=== PATIENT | female | born 1985 | race Caucasian/White ===

== ENCOUNTER 2016-12-10 17:18 | Emergency (ER) | payer OTHER ==
[~2016-12-10] VITALS: Ht 185.4 cm; Wt 131.9 kg
[~2016-12-10 17:18] MED LIST: HEMOCYTE324 MG PO; IBUPROFEN800 MG PO; PRENATAL TABLE1 EAC3 PO; PRILOSEC20 MG PO
[2016-12-10] MEDS ORDERED: PERCOCET 5/31 TABLET PO (19:42)
[2016-12-10 19:56] VITALS: BP 134/93
== END 2016-12-10 19:59 | disposition home or self-care (01) ==
LOC: EME 17:18
PROC: 3E0T3BZ Introduction of Anesthetic Agent into Peripheral Nerves and Plexi, Percutaneous Approach (ICD-10-PCS; principal; 2016-12-10)
DX: O99.619 Diseases of the digestive system complicating pregnancy, unspecified trimester (principal); K08.89 Other specified disorders of teeth and supporting structures; K03.81 Cracked tooth; Z3A.00 Weeks of gestation of pregnancy not specified; Z87.891 Personal history of nicotine dependence
CPT/HCPCS: 99281; 99284; S0020

== ENCOUNTER 2017-03-14 09:36 | Inpatient (IN) | payer OTHER ==
[2017-03-14] VITALS (7 sets, daily range): BP systolic 128–140; BP diastolic 60–91
[~2017-03-14] VITALS: Ht 182.9 cm; Wt 133.4 kg
[~2017-03-14 09:36] MED LIST changes: +PERCOCET 5/31 TABLET PO
[2017-03-14 11:18] LABS: EOSINOPHIL (%) 0.2 % (0-5); HEMATOCRIT 39.2 % (36.0-46.0); IMMATURE GRANULOCYTE (%) 0.3 % (0.0-0.7); INSTRUMENT ABS NEUTROPHIL CT 11.2 K/uL; LYMPHOCYTE COUNT 0.9 K/uL (1.0-2.8); MCH 27.6 PG (29.0-34.0); MCHC 31.6 G/DL (30.0-36.0); MCV 87.3 FL (83-99); MEAN PLAT.VOLUME 10.3 uM^3 (9.5-12.4); MONOCYTE (%) 3.7 % (3-12); MONOCYTE COUNT 0.5 K/uL (0-0.8); NEUTROPHIL (%) 88.8 % (45-76); NEUTROPHIL COUNT 11.2 K/uL (1.8-6.4); PLATELET COUNT 219 K/uL (156-360); RBC DIS.WIDTH-CV 13.5 % (11.8-14.6); RBC DIS.WIDTH-SD 42.5 % (39-53); RED BLOOD COUNT 4.49 M/uL (3.80-5.20); WHITE BLOOD COUNT 12.6 K/uL (4.1-10.2)
[2017-03-15 07:35] LABS: EOSINOPHIL (%) 0.9 % (0-5); EOSINOPHIL COUNT 0.1 K/uL (0-0.3); IMMATURE GRANULOCYTE (%) 0.4 % (0.0-0.7); INSTRUMENT ABS NEUTROPHIL CT 7.1 K/uL; LYMPHOCYTE COUNT 1.8 K/uL (1.0-2.8); MCH 27.8 PG (29.0-34.0); MCHC 31.9 G/DL (30.0-36.0); MCV 87.2 FL (83-99); MEAN PLAT.VOLUME 10.7 uM^3 (9.5-12.4); MONOCYTE COUNT 0.7 K/uL (0-0.8); NEUTROPHIL (%) 73.2 % (45-76); NEUTROPHIL COUNT 7.1 K/uL (1.8-6.4); PLATELET COUNT 192 K/uL (156-360); RBC DIS.WIDTH-CV 13.5 % (11.8-14.6); RBC DIS.WIDTH-SD 43.3 % (39-53); RED BLOOD COUNT 3.67 M/uL (3.80-5.20); WHITE BLOOD COUNT 9.7 K/uL (4.1-10.2)
[2017-03-15 08:04] VITALS: BP 134/71
[2017-03-15] MEDS ORDERED: IBUPROFEN800 MG PO (12:48)
[2017-03-15] MEDS ORDERED: Tylenol Extra Streng PO (12:48)
[2017-03-15 15:29] VITALS: BP 123/57
== END 2017-03-15 18:30 | disposition home or self-care (01) | DRG 775 ==
LOC: LDRP-OP 09:36 → 2WEST 09:38
PROVIDERS: Advanced Practice Midwife
DX: O77.0 Labor and delivery complicated by meconium in amniotic fluid (principal); O99.214 Obesity complicating childbirth; O69.81X0 Labor and delivery complicated by cord around neck, without compression, not applicable or unspecified; E66.9 Obesity, unspecified; Z37.0 Single live birth; Z3A.40 40 weeks gestation of pregnancy; Z68.30 Body mass index [BMI] 30.0-30.9, adult
CPT/HCPCS: 85025; 90686

== ENCOUNTER 2017-10-21 21:03 | Emergency (ER) | payer OTHER ==
[~2017-10-21] VITALS: Ht 182.9 cm; Wt 140.3 kg
[~2017-10-21 21:03] MED LIST changes: +Tylenol Extra Streng PO
[2017-10-22 00:32] LABS: HEMATOCRIT 43.9 % (36.0-46.0); HEMOGLOBIN 14.3 G/DL (11.9-15.5); MCH 27.1 PG (29.0-34.0); MCHC 32.6 G/DL (30.0-36.0); MCV 83.3 FL (83-99); PLATELET COUNT 323 K/uL (156-360); RBC DIS.WIDTH-CV 13.7 % (11.8-14.6); RBC DIS.WIDTH-SD 41.7 % (39-53); RED BLOOD COUNT 5.27 M/uL (3.80-5.20); WHITE BLOOD COUNT 9.7 K/uL (4.1-10.2)
[2017-10-22 00:43] LABS: CHLORIDE 104 mEq/L (99-109); SODIUM 139 mEq/L (136-147)
[2017-10-22 00:45] LABS: GLUCOSE 130 mg/dL (70-99)
[2017-10-22 00:49] LABS: CREATININE 0.9 mg/dL (0.6-1.3); GFR ESTIMATE (CALCULATED) > 59 mL/min/
[2017-10-22 00:50] LABS: UREA NITROGEN (BUN) 13 mg/dL (9-23)
[2017-10-22 00:57] LABS: QUANTITATIVE HCG < 4.0 MIU/ML
[2017-10-22] MEDS ORDERED: SUDAFED PE PRE1 EAC3 PO (02:25)
[2017-10-22] MEDS ORDERED: AUGMENTIN875 MG PO (02:25)
[2017-10-22] MEDS ORDERED: AFRIN,GENASAL D15 ML BOTH NARES (02:25)
[2017-10-22 02:43] VITALS: BP 139/95
== END 2017-10-22 02:46 | disposition home or self-care (01) ==
LOC: EME 21:03
PROVIDERS: Emergency Medicine
DX: J01.90 Acute sinusitis, unspecified (principal); R51 Headache; F17.200 Nicotine dependence, unspecified, uncomplicated
CPT/HCPCS: 70450; 80048; 84702; 85027; 99281; 99285; J0780; J1100; J1200; J7030